=== PATIENT | female | born 1975 | race Caucasian/White ===

== ENCOUNTER 2016-09-29 05:19 | Day surgery (SDC) | payer OTHER ==
[~2016-09-29] VITALS: Ht 157.5 cm; Wt 80.0 kg
[~2016-09-29 05:19] MED LIST: 5-HTP100 MG PO; FISH OIL 1,0001 EAC7 PO
[2016-09-29 05:50] VITALS: BP 109/58
[2016-09-29 10:45] VITALS: BP 126/74
[2016-09-29 11:40] VITALS: BP 94/53
[2016-09-29 13:38] VITALS: BP 103/56
== END 2016-09-29 13:49 | disposition home or self-care (01) ==
LOC: SDC 05:19
DX: N92.1 Excessive and frequent menstruation with irregular cycle (principal); D25.9 Leiomyoma of uterus, unspecified; N80.0 Endometriosis of uterus; N94.6 Dysmenorrhea, unspecified; Z80.49 Family history of malignant neoplasm of other genital organs; Z80.3 Family history of malignant neoplasm of breast; Z82.49 Family history of ischemic heart disease and other diseases of the circulatory system; Z83.3 Family history of diabetes mellitus; Z91.013 Allergy to seafood; Z91.030 Bee allergy status; Z91.09 Other allergy status, other than to drugs and biological substances; Z88.8 Allergy status to other drugs, medicaments and biological substances
CPT/HCPCS: 88307; J0131; J0330; J0690; J1885; J2175; J2250; J2405; J3010; S0020